=== PATIENT | female | born 1995 | race Caucasian/White ===

== ENCOUNTER 2020-05-04 15:53 | Emergency (ER) | payer BC ==
[2020-05-04 18:23] LABS: HEMOGLOBIN 15.3 gm/dl (12.3-15.3); RED BLOOD COUNT 5.06 M/UL (4.00-5.10); WHITE BLOOD COUNT 4.8 K/UL (4.5-11.0)
[2020-05-04 18:54] LABS: BUN/CREATININE RATIO 9 (0-10)
[2020-05-04] MEDS ORDERED: IBU600 MG PO (21:41)
[2020-05-04] MEDS ORDERED: PEPCID20 MG PO (21:41)
[2020-05-04] MEDS ORDERED: ZOFRAN ODT 4 MG4 MG PO (21:41)
[2020-05-04] MEDS ORDERED: PROMETHEGAN25 MG PR (21:41)
[2020-05-04] MEDS ORDERED: CEPHALEXIN500 M1 PO (21:45)
== END 2020-05-04 22:00 | disposition home or self-care (01) ==
LOC: ER1 15:53
PROVIDERS: Nurse Practitioner
DX: U07.1 COVID-19 (principal); N39.0 Urinary tract infection, site not specified
CPT/HCPCS: 71045; 80053; 81001; 83605; 83690; 84703; 85025; 96365; 96367; 96375; 99284; J0696; J1200; J1885; J2405; J2765; J7040